=== PATIENT | male | born 1960 | race Caucasian/White ===

== ENCOUNTER 2017-11-12 06:58 | Day surgery (SDC) | payer OTHER ==
[~2017-11-12] VITALS: Ht 167.6 cm; Wt 62.0 kg
[~2017-11-12 06:58] MED LIST: LEVO-T150 MCG PO; LIALDA1.2 GM PO; MOBIC7.5 MG PO; ZESTRIL20 MG PO
[2017-11-12 08:04] VITALS: BP 124/78
[2017-11-12 14:05] VITALS: BP 105/65
[2017-11-12 15:05] VITALS: BP 103/60
== END 2017-11-12 15:20 | disposition home or self-care (01) ==
LOC: SDC 06:58
PROC: 0LUP0KZ Supplement Left Lower Leg Tendon with Nonautologous Tissue Substitute, Open Approach (ICD-10-PCS; principal; 2017-11-12)
DX: M76.812 Anterior tibial syndrome, left leg (principal); S86.812A Strain of other muscle(s) and tendon(s) at lower leg level, left leg, initial encounter; X58.XXXA Exposure to other specified factors, initial encounter; I10 Essential (primary) hypertension; E03.9 Hypothyroidism, unspecified; Z87.891 Personal history of nicotine dependence
CPT/HCPCS: 88304; J0690; J1100; J1170; J2250; J2405; J2710; J2795; J3010; S0020